=== PATIENT | female | born 1950 | race Caucasian/White ===

== ENCOUNTER → 2017-06-08 | Outpatient (CLI) | payer MEDICARE ==
[~2017-06-08] MED LIST: Ativan0.5 MG PO
== END | disposition home or self-care (01) ==
LOC: LAB EV 11:29 → LAB SHORT 11:29
DX: F34.1 Dysthymic disorder (principal); F41.9 Anxiety disorder, unspecified
CPT/HCPCS: 84443

== ENCOUNTER → 2018-09-12 | Outpatient (CLI) | payer MEDICARE, OTHER | END | disposition home or self-care (01) | LOC: LAB SHORT 17:29 → LAB EV 17:29 | DX: M79.602 Pain in left arm (principal) | CPT/HCPCS: 84484 ==